=== PATIENT | female | born 1965 | race Caucasian/White ===

== ENCOUNTER → 2020-04-28 10:39 | Outpatient (BNVA) | payer MEDICARE, SELFPAY | PROVIDERS: Visit Provider Internal Medicine | DX: Z12.11 Encounter for screening for malignant neoplasm of colon (principal) | CPT/HCPCS: 87635 ==

== ENCOUNTER → 2020-09-17 09:17 | Outpatient (BNVA) | payer MEDICARE, MEDICAID, SELFPAY | PROVIDERS: Referring Provider Registered Nurse; Visit Provider Registered Nurse | DX: Z79.899 Other long term (current) drug therapy (principal) | CPT/HCPCS: 36415; 83036 ==

== ENCOUNTER → 2020-12-10 08:23 | Outpatient (BNVA) | payer MEDICARE, MEDICAID, SELFPAY | PROVIDERS: Visit Provider Internal Medicine | DX: Z01.812 Encounter for preprocedural laboratory examination (principal); Z20.822 Contact with and (suspected) exposure to COVID-19 | CPT/HCPCS: 87635 ==

== ENCOUNTER 2020-12-14 08:31 | Day surgery (SDC) | payer MEDICARE, SELFPAY ==
[2020-12-12 13:30] VITALS: BMI 27.8
--- NOTE | 2020-12-14 09:16 | P.ANESASSM_ITS ---
Pre-Anesthetic Assessment Pre-Anesthetic Assessment: Height/Weight: Height 1.63 m Weight 73.482 kg Proposed Procedure: Operation Date: 12/14/20 10:30 Proposed Procedures p EGD [id number] z12.11 r10.9(Not Applicable) - Rafi Layton MD s Colonoscopy(Not Applicable) - Rafi Layton MD Was Beta Khushboo taken within 24 hours: Yes Was Clonidine taken within 24 hours: N/A Last Intake: 21:00 Social: Social History: Alcohol (drink daily 6 pack beer) and Tobacco (quit smoking cigarettes 20 years ago) Comment: legal marijuana Exam: Pre-Anes Outpt Exam: alert and oriented x 3 Airway: Submandibular: WNL Cervical ROM: WNL MP: 2 Additional c omments: missing all top teeth except for front, not loose missing bottom teeth in the front, not loose History/ROS: Other Pulmonary: Pulmonary: RAMESH CV/HEM: CV/HEM: Angina (Stable) and HTN Comments: reports chest pain o ccasionally due to anxiety : : None reported Hepatic: Comments: hx of hep c, had treatment GI: GI: GERD Metabolic: Metabolic: None reported Musc/skel: Musc/skel: Lower Back Pain and OA/DJD Neuropsych: Neuropsych: Anxiety, Bipolar and Depression Anesthetic Plan: ASA status: 3 Anesthesia: Anesthesia Evaluation and MAC Risk of > 500 ml blood loss (7ml/kg in children): No PFSH Anesthesia PFSH: Medical History (Updated 11/28/20 @ 14:30 by Rafi Layton MD) Adderall use disorder, moderate, in sustained remission Bipolar 2 disorder Generalized anxiety disorder Social History Smoking and tobacco status: former smoker Alcohol intake: current Alcohol intake frequency: 3 or more drinks per day Alcohol type: beer Adopted: No Marital status: Number of children: 2 service: No History of recent travel: No Current gender identity: Female Data Anesthesia Cardiac Studies: No Data to Display
--- NOTE | 2020-12-14 09:17 | P.HP_ITS ---
Same Day Surgery H&P Indication for Procedure/HPI DATE OF PROCEDURE: December 14, 2020 CHIEF COMPLAINT/INDICATIONFOR SURGICAL PROCEDURE: Lower abdominal pain and lower abdominal pain and bloating PREOP DIAGNOSIS: Lower abdominal pain and bloating lower abdominal pain and bloating PLANNED PROCEDRUE: Operation Date: 12/14/20 10:30 Proposed Procedures p EGD [id number] z12.11 r10.9(Not Applicable) - Rafi Layton MD s Colonoscopy(Not Applicable) - Rafi Layton MD Medications/Allergies* Home Medications Medication Instructions Recorded Confirmed Type ibuprofen 800 mg tablet 800 mg PO Q8H 03/27/20 12/12/20 History metoprolol succinate 50 mg 50 mg PO BID 03/27/20 12/12/20 History tablet,extended release 24 hr naproxen 375 mg tablet 375 mg PO TID PRN tab 03/27/20 12/12/20 History Allergies/Adverse Reactions Allergy/AdvReac Type Severity Reaction Status Date / Time acetaminophen Allergy Unknown Unknown Verified 12/12/20 13:32 [From Darvocet-N] meperidine [From Demerol] Allergy Unknown Unknown Verified 12/12/20 13:32 propoxyphene Allergy Unknown Unknown Verified 12/12/20 13:32 [From Darvocet-N] Pertinent History/Comorbid Conditions* Medical History (Updated 11/28/20 @ 14:30 by Rafi Layton MD) Adderall use disorder, moderate, in sustained remission Bipolar 2 disorder Generalized anxiety disorder Social History Smoking and tobacco status: former smoker Alcohol intake: current Alcohol intake frequency: 3 or more drinks per day Alcohol type: beer Adopted: No Marital status: Number of children: 2 service: No History of recent travel: No Current gender identity: Female Pertinent Exam Findings alert, oriented x 3, clear to auscultation bilaterally, regular rate & rhythm, operative site marked and procedure specific exam findings Recommendations Surgery/Procedure today Coding Level of Care Code Acute Fabricator Special Items for Itzel Bowens
[2020-12-14 10:01] VITALS: BP 160/107; PULSE 97; RESP 18; TEMP 36.6; O2SAT 99
[2020-12-14] MEDS: sodium chloride 0.9% 1,000 ML 30 ML IV (10:14)
[2020-12-14 11:05] VITALS: BP 107/65; PULSE 85; RESP 16; TEMP 36.3; O2SAT 100
[2020-12-14 11:20] VITALS: BP 119/76; PULSE 72; RESP 16; O2SAT 94
--- NOTE | 2020-12-14 16:27 | ANE.PACU2 ---
Inpatient post-anesthesia follow up: Airway intact: Yes Vital signs: Temperature 97.4 F Pulse Rate 72 Respiratory Rate 16 Blood Pressure 119/76 Pulse Oximetry 94 Oxygen Delivery Me thod Room Air Oxygen Flow Rate Fraction of Inspir ed Oxygen Hydration adequate: Yes Nausea and vomiting: No Pain level: 2 Mental status: Baseline
[2020-12-17 08:37] LABS: H. Pylori / CLO Test Negative
== END 2020-12-14 11:41 | disposition home or self-care (01) ==
PROVIDERS: Visit Provider Internal Medicine
PROC: 0DJ08ZZ Inspection of Upper Intestinal Tract, Via Natural or Artificial Opening Endoscopic (ICD-10-PCS; CPT 43235; principal; 2020-12-14 10:30)
PROC: 0DJD8ZZ Inspection of Lower Intestinal Tract, Via Natural or Artificial Opening Endoscopic (ICD-10-PCS; CPT 45378; 2020-12-14 10:30)
DX: Z12.11 Encounter for screening for malignant neoplasm of colon (principal); R10.9 Unspecified abdominal pain; K52.9 Noninfective gastroenteritis and colitis, unspecified; K25.9 Gastric ulcer, unspecified as acute or chronic, without hemorrhage or perforation; K29.70 Gastritis, unspecified, without bleeding; I10 Essential (primary) hypertension; Z86.19 Personal history of other infectious and parasitic diseases; K21.9 Gastro-esophageal reflux disease without esophagitis; M19.90 Unspecified osteoarthritis, unspecified site; Z87.891 Personal history of nicotine dependence
CPT/HCPCS: 43239; 45378; 87077; 96360; J7030

== ENCOUNTER → 2022-01-29 14:59 | Outpatient (BNVA) | payer MEDICARE, SELFPAY | PROVIDERS: Visit Provider Registered Nurse | DX: Z79.899 Other long term (current) drug therapy (principal); F31.81 Bipolar II disorder; F41.1 Generalized anxiety disorder | CPT/HCPCS: 80053; 80061; 83036; 85025 ==

== ENCOUNTER → 2022-10-01 15:12 | Outpatient (BNVA) | payer MEDICARE, MEDICAID, SELFPAY | PROVIDERS: Visit Provider Obstetrics & Gynecology | DX: L91.8 Other hypertrophic disorders of the skin (principal) | CPT/HCPCS: 88305 ==

== ENCOUNTER → 2022-10-23 14:58 | Outpatient (BNVA) | payer MEDICARE, MEDICAID, SELFPAY | PROVIDERS: PCP Family Medicine; Visit Provider Surgery | DX: R22.42 Localized swelling, mass and lump, left lower limb (principal) | CPT/HCPCS: 99203 ==

== ENCOUNTER 2022-11-03 14:55 | Outpatient (CLI) | payer MEDICARE, MEDICAID, SELFPAY ==
--- NOTE | 2022-11-03 15:15 | US_ITS ---
WS: [id number] ULTRASOUND SOFT TISSUES upper LEFT thigh. HISTORY: subcutaneous mass COMPARISON: None available. TECHNIQUE: 2-D and color Doppler imaging is submitted. Ultrasound is directed to the upper LEFT thigh near the hip by the patient. There is a soft tissue ma ss which is lobulated and mildly hyperechoic with respect to the adjacent soft tissues. Mass measures 1.7 x 2.6 x 0.7 cm. No increased vascularity. US/US soft tissue/extremity [id number] IMPRESSION: Hyperechoic soft tissue mass corresponding to the palpable area is most consist ent with a lipoma.
== END 2022-11-03 14:56 | disposition home or self-care (01) ==
PROVIDERS: PCP Family Medicine; Visit Provider Surgery
DX: M79.89 Other specified soft tissue disorders (principal)
CPT/HCPCS: 76882

== ENCOUNTER 2022-11-19 10:35 | Outpatient (CLI) | payer OTHER, SELFPAY ==
--- NOTE | 2022-11-19 11:00 | MR_ITS ---
WS: [id number] EXAMINATION: MR shoulder LT wo con* [id number] ORDER DATE: 11/19/2022 11:09 AM COMPARISON: None. HISTORY: S46.019A - Strain of muscle(s) and tendon(s) of the rotat... CONTRAST: None. TECHNIQUE: Axial T2 STAR, coronal proton density fat sat, sagittal T2 fat sat, sagittal proton densit y fat sat, axial proton density fat sat, coronal T2 fat sat, and coronal T1 performed. FINDINGS: Moderate to advanced degenerative arthritis glenohumeral joint with hypertrophic spurring a long the humeral head. This is advanced for patient this age. Moderate degenerative arthritis AC joint. Slight subacromial spurring. Mild narrowing of the subacrom ial space. Edema at the AC joint. Normal biceps tendon in the bicipital groove. Intra-articular biceps tendon appears intact. Chronic t hinning of the distal supraspinatus appears intact. Normal infraspinatus. Normal teres minor. Normal subscapularis tendon. Degenerative fraying of the glenoid labrum. Small amount of fluid in the subcor acoid bursa. MR/MR shoulder LT wo con* [id number] IMPRESSION: 1. Moderate degenerative arthritis AC joint with mild narrowing of the subacro mial space. 2. Mild thinning of the supraspinatus which appears intact. 3. Rotator cuff otherwise appears intact. 4. Normal biceps tendon in the bicipital groove. 5. Moderate to advanced degenerative arthritis glenohumeral joint with hypertr ophic spurring along the humeral head. 6. Visually small joint capsule can be seen with adhesive capsulitis in the ap propriate clinical setting. Small amount of T2 signal in the rotator interval.
== END 2022-11-19 10:36 | disposition home or self-care (01) ==
LOC: RAD 10:39
PROVIDERS: PCP Family Medicine; Visit Provider Orthopaedic Surgery
DX: M19.012 Primary osteoarthritis, left shoulder (principal)
CPT/HCPCS: 73221

== ENCOUNTER → 2022-11-25 15:14 | Outpatient (BNVA) | payer MEDICARE, MEDICAID, SELFPAY | PROVIDERS: PCP Family Medicine; Visit Provider Surgery | DX: R22.9 Localized swelling, mass and lump, unspecified (principal) | CPT/HCPCS: 88304; 99213 ==

== ENCOUNTER → 2023-01-27 15:19 | Outpatient (BNVA) | payer MEDICARE, SELFPAY | PROVIDERS: PCP Family Medicine; Visit Provider Registered Nurse | DX: Z79.899 Other long term (current) drug therapy (principal) | CPT/HCPCS: 80053; 80061; 83036; 83721; 84443; 85025 ==

== ENCOUNTER → 2024-10-27 16:45 | Outpatient (BNVA) | payer MEDICARE, MEDICAID, OTHER, SELFPAY | PROVIDERS: PCP Family Medicine; Visit Provider Psychiatry & Neurology Psychiatry | DX: Z79.899 Other long term (current) drug therapy (principal) | CPT/HCPCS: 80053; 80061; 83036; 84443; 85025 ==